=== PATIENT | male | born 1970 | race Caucasian/White ===

== ENCOUNTER 2017-05-02 19:34 | Emergency (ER) | payer OTHER ==
[2017-05-02] MEDS: NAPROXEN 500 MG TABLET PO ×2 (21:40)
== END 2017-05-02 22:47 | disposition home or self-care (01) ==
LOC: ER 19:34
DX: S16.1XXA Strain of muscle, fascia and tendon at neck level, initial encounter (principal); S29.012A Strain of muscle and tendon of back wall of thorax, initial encounter; V43.52XA Car driver injured in collision with other type car in traffic accident, initial encounter; Y93.I9 Activity, other involving external motion; Y92.410 Unspecified street and highway as the place of occurrence of the external cause; Y99.8 Other external cause status
CPT/HCPCS: 72125; 72128; 99284-25